=== PATIENT | male | born 1985 | race African-American/Black ===

== ENCOUNTER 2018-12-17 09:04 | Emergency (ER) | payer SELFPAY ==
[2018-12-17] MEDS ORDERED: Dexamethasone 4 mg/ml Vial ONE (09:57)
[2018-12-17] MEDS ORDERED: Bicillin LA 1.2 MILLION UNITS/2 ML SYRINGE ONE (10:00)
== END 2018-12-17 10:18 | disposition home or self-care (01) ==
LOC: ERS 09:04
DX: J02.0 Streptococcal pharyngitis (principal); F17.290 Nicotine dependence, other tobacco product, uncomplicated
CPT/HCPCS: 87430; 96372; J0561; J1100

== ENCOUNTER 2020-07-15 16:21 | Emergency (ER) | payer SELFPAY | END 2020-07-15 16:53 | disposition home or self-care (01) | LOC: ERS 16:21 | DX: N34.2 Other urethritis (principal); F17.290 Nicotine dependence, other tobacco product, uncomplicated | CPT/HCPCS: 99281 ==

== ENCOUNTER 2020-08-07 06:38 | Emergency (ER) | payer OTHER, SELFPAY ==
[2020-08-07 16:19] LABS: SARS-CoV-2 PCR by NAA Not Detected (NotDetected)
== END 2020-08-07 07:00 | disposition home or self-care (01) ==
LOC: ERS 06:38
DX: R53.83 Other fatigue (principal); R05 Cough; R68.83 Chills (without fever); Z20.822 Contact with and (suspected) exposure to COVID-19; F17.290 Nicotine dependence, other tobacco product, uncomplicated
CPT/HCPCS: 87635; 99283; U0003; U0005

== ENCOUNTER 2020-10-09 06:48 | Emergency (ER) | payer SELFPAY | END 2020-10-09 09:08 | disposition home or self-care (01) | LOC: ERS 06:48 | DX: K21.9 Gastro-esophageal reflux disease without esophagitis (principal); F17.200 Nicotine dependence, unspecified, uncomplicated | CPT/HCPCS: 71045; 93005 ==